=== PATIENT | female | born 1965 | race Caucasian/White ===

== ENCOUNTER 2019-10-06 04:55 | Day surgery (SDC) | payer OTHER ==
[2019-09-16 11:26] VITALS: BMI 27.4
[2019-10-06] MEDS ORDERED: PROPOFOL 20 ML ONE (07:35)
[2019-10-06] MEDS ORDERED: MIDAZOLAM HCL 2 MG/2 ML SINGLE DOSE VIAL ONE (07:35)
[2019-10-06] MEDS ORDERED: LIDOCAINE HCL/PF 2% SDV 5ML VIAL ONE (07:50)
[2019-10-06] MEDS ORDERED: DEXAMETHASONE SOD PHOSPHATE 4 MG/1 ML VIAL ONE (08:01)
--- NOTE | 2019-10-06 08:02 | HP ---
Admitting History and Physical - Admission Chief Complaint: Abnormal sonogram History of Present Illness: 54 yo post menopausal seen in office and found to have endometrial echo complex suspicious of endometrial polyp. Patient is pre op for D&C hysteroscopy. History Source: Patient Limitations to Obtaining History: No Limitations - Past Medical History ...: No - Past Surgical History Past Surgical History: Yes: None - Smoking History Smoking history: Never smoked - Alcohol/Substance Use Hx Alcohol Use: No History of Substance Use: reports: None - Social History History of Recent Travel: No Home Medications - Allergies Allergies/Adverse Reactions: Allergies Allergy/AdvReac Type Severity Reaction Status Date / Time No Known Allergies Allergy Unverified 10/06/19 06:38 - Home Medications Home Medications: Ambulatory Orders Multivitamin [One-Daily Multi-Vitamin] 1 each PO DAILY 09/16/19 Calcium Carbonate [Calcium] 500 mg PO DAILY 10/06/19 Beverly-3/Dha/Epa/Fish Oil [Beverly 3 500 Softgel] 1 each PO DAILY 10/06/19 Family Medical History Family History: Unremarkable Review of Systems - Review of Systems Constitutional: reports: No Symptoms Eyes: reports: No Symptoms HENT: reports: No Symptoms Neck: reports: No Symptoms Cardiovascular: reports: No Symptoms Respiratory: reports: No Symptoms Gastrointestinal: reports: No Symptoms Genitourinary: reports: No Symptoms Breasts: reports: No Symptoms Reported Musculoskeletal: reports: No Symptoms Integumentary: reports: No Symptoms Neurological: reports: No Symptoms Pain Intensity: 0 Physical Examination Vital Signs: Vital Signs Temperature 97.5 F L 10/06/19 06:36 Pulse Rate 72 10/06/19 06:36 Respiratory Rate 20 10/06/19 06:36 Blood Pressure 124/90 10/06/19 06:36 O2 Sat by Pulse Oximetry (%) 100 10/06/19 06:36 Constitutional: Yes: Well Nourished Eyes: Yes: Conjunctiva Clear HENT: Yes: Atraumatic Neck: Yes: Supple Cardiovascular: Yes: Regular Rate and Rhythm Respiratory: Yes: Regular Gastrointestinal: Yes: Normal Bowel Sounds Neurological: Yes: Alert, Oriented ...Motor Strength: WNL Psychiatric: Yes: Alert, Oriented Problem List - Problems (1) Endometrial thickening on ultrasound Problems reviewed: Yes Code(s): R93.89 - ABNORMAL FINDINGS ON DX IMAGING OF OTH BODY STRUCTURES Assessment/Plan Abnormal sonogram R/O endometrial polyp Pre op for D&C hysteroscopy Consent signed Anesthesia to see patient
[2019-10-06] MEDS ORDERED: KETOROLAC TROMETHAMINE 30 MG/1 ML VIAL ONE (08:03)
--- NOTE | 2019-10-06 08:33 | OP ---
Operative Note - Note: Operative Date: 10/06/19 Pre-Operative Diagnosis: Thicken endometrium Operation: D&C Hysteroscopy Findings: Endometrial polyp Post-Operative Diagnosis: Same as Pre-op Surgeon: Deisy Guerra Anesthesia: General Specimens Removed: Endometrial polyp / Endometria curettings Estimated Blood Loss (mls): 5 Operative Report Dictated: Yes
[2019-10-06] MEDS ORDERED: PROMETHAZINE HCL 25 MG/1 ML VIAL IVPB PRN (08:37)
[2019-10-06] MEDS ORDERED: oxyCODONE HCL 5 MG TABLET PO PRN (08:37)
[2019-10-06] MEDS ORDERED: ONDANSETRON 4 MG/2 ML VIAL IVPUSH PRN (08:37)
[2019-10-06] MEDS ORDERED: LACTATED RINGERS SOLUTION 1,000 ML IV SCH (08:45)
--- NOTE | 2019-10-06 10:02 | OP ---
DATE OF OPERATION: 10/06/2019 PREOPERATIVE DIAGNOSIS: Thickened endometrium on ultrasound. POSTOPERATIVE DIAGNOSIS: Endometrial polyp. SURGEON: Deisy Guerra MD PROCEDURE: Dilation and curettage, hysteroscopy. ANESTHESIA: General. COMPLICATIONS: None. ESTIMATED BLOOD LOSS: 5 mL. PROCEDURE: Patient was taken to the operating room where general anesthesia was administered. Patient was then placed in lithotomy position. She was then prepped and draped in proper sterile fashion. A weighted speculum was placed in the vagina. The anterior lip of the cervix was grasped with a single-tooth tenaculum. Then the 5-mm hysteroscope was then gently introduced into the uterine cavity. The cavity was visualized. Both ostia were visualized. There were also 2 endometrial polyps noted in the cavity. Then the scope was removed and using the polyp forceps the polyps were removed and a sharp curettage was then performed. Then a 2nd look with the hysteroscope revealed the absence of 1 polyp and the partial removal of the other polyp and the instruments were removed. The patient was taken out of lithotomy position. She was taken to PACU in stable condition. PATHOLOGY: Endometrial polyp and endometrial curettings. DEISY GUERRA M.D. [id number]
[2019-10-06 10:56] VITALS: TEMP 97.8
[2019-10-06 11:03] VITALS: BP 122/70; PULSE 68
--- NOTE | 2019-10-07 16:37 | PATH ---
Surgical Pathology Report Patient Name: CHINEDU ALLEN [facility]. Rec. #: [id number] /Age/Gender: 1965 (Age: 54) / F Account: [id number] Location: [facility] SURGICAL Taken: 10/06/2019 Received: 10/06/2019 Reported: 10/07/2019 Physicians: Deisy Guerra M.D. Specimen(s) Received ENDOMETRIAL CURETTINGS AND POLYP Clinical History Abnormal sonogram Final Diagnosis ENDOMETRIAL CURETTINGS AND POLYP, DILATION AND CURETTAGE: FRAGMENTS OF ENDOMETRIAL POLYP, STRIPS OF ENDOMETRIAL GLANDS COMPATIBLE WITH ATROPHIC ENDOMETRIUM, AND SCANT BENIGN CERVICAL TISSUE ADMIXED WITH BLOOD AND MUCUS. Electronically Signed Leticia Stoll M.D. Gross Description Received in formalin labeled "endometrial curettings and polyp," is a 2.2 x 0.6 x 0.3 cm ames-red, polypoid portion of soft tissue. Also received within the same container is a 1.0 x 0.8 x 0.2 cm aggregate of ames-red soft tissue fragments. The specimen is entirely submitted in one cassette. /10/06/2019 saudi10/06/2019
== END 2019-10-06 11:06 | disposition home or self-care (01) ==
LOC: JASU-SURG 04:55
PROVIDERS: ATTEND Obstetrics & Gynecology
PROC: 0UJD8ZZ Inspection of Uterus and Cervix, Via Natural or Artificial Opening Endoscopic (ICD-10-PCS; 2019-10-06)
PROC: 0UB97ZX Excision of Uterus, Via Natural or Artificial Opening, Diagnostic (ICD-10-PCS; principal; 2019-10-06 07:45)
PROC: 0UDB7ZX Extraction of Endometrium, Via Natural or Artificial Opening, Diagnostic (ICD-10-PCS; 2019-10-06 07:45)
DX: N84.0 Polyp of corpus uteri (principal); R93.89 Abnormal findings on diagnostic imaging of other specified body structures
CPT/HCPCS: 86850; 86900; 86901; 88305-TC; 94760